=== PATIENT | female | born 1990 | race Caucasian/White ===

== ENCOUNTER 2022-05-04 14:16 | Outpatient (CLI) | payer MEDICAID, OTHER ==
[~2022-05-04 14:16] MED LIST: ALBUTEROL SULFATE 2.5MG/0.5ML INH NEB SOLN INH PRN; EPINEPHrine INJ 1 MG/ML 1ML AMP IM PRN; diphenhydrAMINE 50MG/ML VIAL IV PRN; methylPREDNISolone 125MG 2ML VIAL IV PRN
[2022-05-04] MEDS ORDERED: FERRIC CARBOXYMALTOSE INJ 750 MG in NS 250 ML (>50kg) IV ONE ×3 (15:00)
[2022-05-04] MEDS ORDERED: NS 1,000 ML IV SCH (15:00)
[2022-05-04 16:09] VITALS: BP 127/78
== END 2022-05-04 16:10 | disposition home or self-care (01) ==
LOC: M INFU 14:16
PROVIDERS: ATTEND Internal Medicine Hematology
DX: D50.9 Iron deficiency anemia, unspecified (principal)
CPT/HCPCS: 96365; J1439

== ENCOUNTER 2022-07-17 14:30 | Outpatient (CLI) | payer OTHER ==
[~2022-07-17] VITALS: Ht 157.5 cm; Wt 72.7 kg
[2022-07-17 14:30] VITALS: BP 133/82
[~2022-07-17 14:30] MED LIST changes: +FERRIC CARBOXYMALTOSE INJ 750 MG in NS 250 ML (>50kg) IV ONE; +NS 1,000 ML IV SCH
[2022-07-17 15:44] VITALS: BP 116/72
== END 2022-07-17 15:42 | disposition home or self-care (01) ==
LOC: M INFU 14:30
PROVIDERS: ATTEND Internal Medicine Hematology
DX: D50.9 Iron deficiency anemia, unspecified (principal); Z88.6 Allergy status to analgesic agent
CPT/HCPCS: 96365; J1439